=== PATIENT | female | born 1975 | race Caucasian/White ===

== ENCOUNTER 2018-04-10 15:45 | Inpatient (IN) ==
[2018-04-10] MEDS ORDERED: PANTOPRAZOLE 40 MG VIAL IV STA (16:25)
[2018-04-10] MEDS ORDERED: ONDANSETRON 4 MG/2 ML VIAL IV STA (16:25)
[2018-04-10] MEDS ORDERED: SODIUM CHLORIDE 0.9% 1,000 ML IV STA (16:25)
[2018-04-10 17:53] LABS: Basophils # 0.1 10*3/uL (0.0-0.2); Basophils % 0.2 % (0.0-0.8); Hemoglobin 14.8 GM/DL (12.0-16.0); Immature Granulocytes % 1.2 %; Immature Granulocytes Absolute 0.24 #; Lymphocytes # 2.1 10*3/uL (1.4-4.0); Lymphocytes % 10.2 % (21.3-54.2); Mean Corpuscular HGB Conc 30.8 GM/DL (32-36); Mean Corpuscular Hemoglobin 33 PG (27-34); Mean Corpuscular Volume 107.9 FL (87-102); Mean Platelet Volume 9.5 FL (9.6-12.0); Monocytes # 1.3 10*3/uL (0.11-0.8); Monocytes % 6.6 % (1.7-12.7); Neutrophils # 16.6 10*3/uL (1.4-7.4); Neutrophils % 81.8 % (38.7-73.9); Platelet Count 356 T/CUMM (130-400); Red Blood Count 4.45 MC/CUMM (3.8-5.5); White Blood Count 20.4 T/CUMM (4-12)
[2018-04-10 18:02] LABS: PT Patient Result 10.5 SECS
[2018-04-10 18:06] LABS: Apearance,Urine Slightly Hazy (Clear); Bilirubin,Urine Negative (Negative); Blood, Urine Negative (Negative); Glucose,Urine (UA) Negative (Negative); Hyaline Casts,Urine 18 /LPF (0-3); Ketones,Urine 5 mg/dL (Negative); Mucus,Urine Occasional /LPF (Occasional); Nitrite,Urine Negative (Negative); Protein,Urine 30 MG/DL; RBC,Urine 1 /HPF (0-4); Squamous Epithelial Cell,Urine Occasional /HPF (0-10); Urine Color Yellow (Yellow); Urine Specific Gravity 1.016 (1.001-1.035); Urine Urobilinogen < 2.0 EU/DL (0.2-1.0); WBC,Urine 1 /HPF (0-6)
[2018-04-10 18:15] LABS: Barbiturates Screen,Urine Positive (Negative); Benzodiazepines Screen,Urine Positive (Negative); Cannabinoid Screen,Urine Negative (Negative); Opiate Screen,Urine Negative (Negative); Phencyclidine Screen,Urine Negative (Negative)
[2018-04-10 18:23] LABS: Albumin 3.6 G/DL (3.4-5.0); Bilirubin,Total 0.7 MG/DL (0.2-1.0); Calcium 7.3 MG/DL (8.5-10.1); Osmolality,Calculated 274.5 MOS/KG (273-304); Potassium 5.2 MMOL/L (3.5-5.1); Total Protein 6.3 G/DL (6.4-8.3)
[2018-04-10 18:45] LABS: Lymphocytes 11 % (20-55); Segmented Neutrophils 85 % (50-85); Total Cells Counted 100
[2018-04-10 18:46] LABS: Macrocytosis 1+; Platelet Estimate Adequate
[2018-04-10] MEDS ORDERED: DIAZEPAM 10 MG/2 ML SYRINGE IV PRN (20:14)
[2018-04-10] MEDS ORDERED: LEVOFLOXACIN INJ 750 MG in PREMIX 1 EACH IV SCH (20:30)
[2018-04-10] MEDS: LORazepam 2 MG/1 ML VIAL IV PRN ×2 (20:45→23:38)
[2018-04-10] MEDS ORDERED: DEXTROSE 50% 25 GM/50 ML SYRINGE IV PRN (20:49)
[2018-04-10] MEDS ORDERED: GLUCAGON 1 MG VIAL IM PRN (20:49)
[2018-04-10 20:59] LABS: Hematocrit 45.5 VOL% (35.7-47.0); Hemoglobin 14.4 GM/DL (12.0-16.0)
[2018-04-10] MEDS: INSULIN LISPRO 100 UNIT/ML SUBCUT SCH (21:39)
[2018-04-10] MEDS: ONDANSETRON 4 MG/2 ML VIAL IV PRN (23:38)
[2018-04-10] MEDS: MIRTAZAPINE 15 MG TABLET PO SCH (23:38)
[2018-04-10] MEDS: SODIUM CHLORIDE 0.9% 1,000 ML IV SCH (23:39)
[2018-04-11] MEDS: THIAMINE 200 MG/2 ML VIAL IV SCH ×3 (00:17→08:03)
[2018-04-11] MEDS: FOLIC ACID 1 MG TABLET PO SCH ×2 (00:17→08:01)
[2018-04-11] MEDS: MULTIVITAMIN (CENTRUM) TABLET PO SCH ×2 (00:17→08:00)
[2018-04-11] MEDS: PANTOPRAZOLE INJ 200 MG in SODIUM CHLORIDE 0.9% 250 ML IV SCH (00:34)
[2018-04-11] MEDS ORDERED: PROMETHAZINE 25 MG/1 ML VIAL IM PRN (01:22)
[2018-04-11] MEDS: PROMETHAZINE 25 MG/1 ML VIAL IM PRN ×4 (01:33→20:15)
[2018-04-11 03:05] LABS: Basophils # 0.1 10*3/uL (0.0-0.2); Basophils % 0.3 % (0.0-0.8); Hematocrit 42.5 VOL% (35.7-47.0); Hemoglobin 13.3 GM/DL (12.0-16.0); Immature Granulocytes % 0.7 %; Immature Granulocytes Absolute 0.13 #; Lymphocytes % 5.4 % (21.3-54.2); Mean Corpuscular HGB Conc 31.3 GM/DL (32-36); Mean Corpuscular Hemoglobin 33 PG (27-34); Mean Corpuscular Volume 106.5 FL (87-102); Mean Platelet Volume 9.7 FL (9.6-12.0); Monocytes # 1.7 10*3/uL (0.11-0.8); Monocytes % 9.6 % (1.7-12.7); Neutrophils # 14.8 10*3/uL (1.4-7.4); Platelet Count 268 T/CUMM (130-400); Red Blood Count 3.99 MC/CUMM (3.8-5.5); Red Cell Distribution Width 12.8 % (9.3-17.3); White Blood Count 17.6 T/CUMM (4-12)
[2018-04-11] MEDS: ONDANSETRON 4 MG/2 ML VIAL IV PRN ×4 (05:14→23:36)
[2018-04-11] MEDS: SODIUM CHLORIDE 0.9% 1,000 ML IV SCH ×3 (05:16→21:16)
[2018-04-11] MEDS: LORazepam 2 MG/1 ML VIAL IV PRN ×4 (05:22→21:09)
[2018-04-11 07:23] LABS: PT Patient Result 10.9 SECS; Partial Thromboplastin Time 26.6 SECS (0-40)
[2018-04-11] MEDS: INSULIN LISPRO 100 UNIT/ML SUBCUT SCH ×4 (07:32→21:17)
[2018-04-11 08:03] LABS: Bilirubin,Total 0.4 MG/DL (0.2-1.0); Calcium 6.6 MG/DL (8.5-10.1); Osmolality,Calculated 267.4 MOS/KG (273-304); Potassium 4.5 MMOL/L (3.5-5.1); Total Protein 5.6 G/DL (6.4-8.3)
[2018-04-11 08:30] LABS: Hematocrit 37.7 VOL% (35.7-47.0); Hemoglobin 12.3 GM/DL (12.0-16.0)
[2018-04-11 15:17] LABS: Hemoglobin 12.1 GM/DL (12.0-16.0)
[2018-04-11] MEDS: MIRTAZAPINE 15 MG TABLET PO SCH (20:16)
[2018-04-12] MEDS: LORazepam 2 MG/1 ML VIAL IV PRN ×4 (01:15→20:10)
[2018-04-12] MEDS: PANTOPRAZOLE INJ 200 MG in SODIUM CHLORIDE 0.9% 250 ML IV SCH (01:21)
[2018-04-12] MEDS: PROMETHAZINE 25 MG/1 ML VIAL IM PRN ×3 (02:07→20:10)
[2018-04-12] MEDS: ONDANSETRON 4 MG/2 ML VIAL IV PRN ×3 (05:18→22:50)
[2018-04-12] MEDS: SODIUM CHLORIDE 0.9% 1,000 ML IV SCH ×2 (05:21→16:14)
[2018-04-12 06:00] LABS: Hematocrit 34.8 VOL% (35.7-47.0); Hemoglobin 11.5 GM/DL (12.0-16.0); Immature Granulocytes % 0.4 %; Immature Granulocytes Absolute 0.02 #; Lymphocytes # 0.9 10*3/uL (1.4-4.0); Lymphocytes % 17.7 % (21.3-54.2); Mean Corpuscular Hemoglobin 33 PG (27-34); Mean Corpuscular Volume 99.1 FL (87-102); Mean Platelet Volume 10.2 FL (9.6-12.0); Monocytes # 0.6 10*3/uL (0.11-0.8); Monocytes % 10.7 % (1.7-12.7); Neutrophils # 3.8 10*3/uL (1.4-7.4); Neutrophils % 71.2 % (38.7-73.9); Platelet Count 181 T/CUMM (130-400); Red Blood Count 3.51 MC/CUMM (3.8-5.5); Red Cell Distribution Width 12.9 % (9.3-17.3); White Blood Count 5.3 T/CUMM (4-12)
[2018-04-12 06:06] LABS: INR 0.9; PT Patient Result 10.3 SECS
[2018-04-12 06:48] LABS: Osmolality,Calculated 268.2 MOS/KG (273-304); Potassium 3.8 MMOL/L (3.5-5.1)
[2018-04-12] MEDS: INSULIN LISPRO 100 UNIT/ML SUBCUT SCH ×4 (07:39→21:04)
[2018-04-12] MEDS: THIAMINE 200 MG/2 ML VIAL IV SCH (09:31)
[2018-04-12] MEDS ORDERED: PROPOFOL 200 MG/20 ML VIAL IV ONE (10:00)
[2018-04-12] MEDS ORDERED: LIDOCAINE 2% 5 ML VIAL ONE (10:00)
[2018-04-12] MEDS: FOLIC ACID 1 MG TABLET PO SCH (12:16)
[2018-04-12] MEDS: MULTIVITAMIN (CENTRUM) TABLET PO SCH (12:16)
[2018-04-12] MEDS: LEVOFLOXACIN INJ 750 MG in PREMIX 1 EACH IV SCH (20:08)
[2018-04-12] MEDS: MIRTAZAPINE 15 MG TABLET PO SCH (20:10)
[2018-04-12] MEDS: PANTOPRAZOLE 40 MG VIAL IV SCH (20:12)
[2018-04-13] MEDS: LORazepam 2 MG/1 ML VIAL IV PRN ×5 (00:25→21:08)
[2018-04-13] MEDS: SODIUM CHLORIDE 0.9% 1,000 ML IV SCH ×3 (00:27→17:08)
[2018-04-13] MEDS: ONDANSETRON 4 MG/2 ML VIAL IV PRN ×2 (04:39→21:08)
[2018-04-13] MEDS: PROMETHAZINE 25 MG/1 ML VIAL IM PRN ×3 (06:05→21:17)
[2018-04-13 06:12] LABS: Basophils % 0.2 % (0.0-0.8); Eosinophils % 0.9 % (0.00-10.9); Hematocrit 36.1 VOL% (35.7-47.0); Hemoglobin 12.3 GM/DL (12.0-16.0); Immature Granulocytes % 0.2 %; Immature Granulocytes Absolute 0.01 #; Lymphocytes # 1.6 10*3/uL (1.4-4.0); Lymphocytes % 37.2 % (21.3-54.2); Mean Corpuscular HGB Conc 34.1 GM/DL (32-36); Mean Corpuscular Hemoglobin 33 PG (27-34); Mean Corpuscular Volume 97.6 FL (87-102); Mean Platelet Volume 9.7 FL (9.6-12.0); Monocytes # 0.6 10*3/uL (0.11-0.8); Monocytes % 14.1 % (1.7-12.7); Neutrophils % 47.4 % (38.7-73.9); Platelet Count 151 T/CUMM (130-400); Red Cell Distribution Width 12.9 % (9.3-17.3); White Blood Count 4.3 T/CUMM (4-12)
[2018-04-13 06:20] LABS: PT Patient Result 10.5 SECS
[2018-04-13 06:38] LABS: Albumin 2.7 G/DL (3.4-5.0); Bilirubin,Total 0.5 MG/DL (0.2-1.0); Calcium 7.8 MG/DL (8.5-10.1); Osmolality,Calculated 272.7 MOS/KG (273-304); Total Protein 5.4 G/DL (6.4-8.3)
[2018-04-13] MEDS: INSULIN LISPRO 100 UNIT/ML SUBCUT SCH ×4 (08:21→23:06)
[2018-04-13] MEDS: MULTIVITAMIN (CENTRUM) TABLET PO SCH (09:27)
[2018-04-13] MEDS: SODIUM CHLOR 0.9% KCL 40 MEQ 40 MEQ/1,000 ML BAG IV SCH (09:37)
[2018-04-13] MEDS: THIAMINE 200 MG/2 ML VIAL IV SCH (09:40)
[2018-04-13] MEDS: FOLIC ACID 1 MG TABLET PO SCH (09:40)
[2018-04-13 10:33] LABS: Apearance,Urine CLEAR (Clear); Bacteria,Urine Occasional /HPF (Few); Bilirubin,Urine Negative (Negative); Blood, Urine Moderate mg/dL (Negative); Glucose,Urine (UA) Negative (Negative); Ketones,Urine 20 mg/dL (Negative); Mucus,Urine Occasional /LPF (Occasional); Nitrite,Urine Negative (Negative); Protein,Urine Negative; RBC,Urine 6 /HPF (0-4); Urine Color Straw (Yellow); Urine Specific Gravity 1.005 (1.001-1.035); Urine Urobilinogen < 2.0 EU/DL (0.2-1.0); WBC,Urine 2 /HPF (0-6)
[2018-04-13 10:39] LABS: Barbiturates Screen,Urine Positive (Negative); Benzodiazepines Screen,Urine Negative (Negative); Cannabinoid Screen,Urine Negative (Negative); Opiate Screen,Urine Positive (Negative); Phencyclidine Screen,Urine Negative (Negative)
[2018-04-13] MEDS: PANTOPRAZOLE 40 MG VIAL IV SCH ×2 (11:52→21:07)
[2018-04-13] MEDS: MIRTAZAPINE 15 MG TABLET PO SCH (21:09)
[2018-04-13] MEDS: LEVOFLOXACIN INJ 750 MG in PREMIX 1 EACH IV SCH (21:09)
[2018-04-14] MEDS: LORazepam 2 MG/1 ML VIAL IV PRN ×2 (00:50→04:39)
[2018-04-14] MEDS: PROMETHAZINE 25 MG/1 ML VIAL IM PRN ×3 (04:39→18:12)
[2018-04-14] MEDS: ONDANSETRON 4 MG/2 ML VIAL IV PRN (04:40)
[2018-04-14 06:06] LABS: Basophils % 0.2 % (0.0-0.8); Eosinophils # 0.1 10*3/uL (0.0-0.87); Eosinophils % 2.1 % (0.00-10.9); Hematocrit 38.1 VOL% (35.7-47.0); Hemoglobin 12.9 GM/DL (12.0-16.0); Immature Granulocytes % 0.5 %; Immature Granulocytes Absolute 0.02 #; Lymphocytes # 1.7 10*3/uL (1.4-4.0); Lymphocytes % 39.6 % (21.3-54.2); Mean Corpuscular HGB Conc 33.9 GM/DL (32-36); Mean Corpuscular Hemoglobin 33 PG (27-34); Mean Corpuscular Volume 97.4 FL (87-102); Mean Platelet Volume 10.5 FL (9.6-12.0); Monocytes # 0.6 10*3/uL (0.11-0.8); Monocytes % 12.8 % (1.7-12.7); Neutrophils % 44.8 % (38.7-73.9); Platelet Count 165 T/CUMM (130-400); Red Blood Count 3.91 MC/CUMM (3.8-5.5); White Blood Count 4.4 T/CUMM (4-12)
[2018-04-14 06:19] LABS: Calcium 7.8 MG/DL (8.5-10.1); Osmolality,Calculated 279.4 MOS/KG (273-304); Potassium 3.3 MMOL/L (3.5-5.1)
[2018-04-14 06:24] LABS: Albumin 2.4 G/DL (3.4-5.0); Bilirubin,Direct 0.12 MG/DL (0.0-0.20); Bilirubin,Indirect 0.5 MG/DL (0.0-1.0); Bilirubin,Total 0.6 MG/DL (0.2-1.0); Total Protein 5.1 G/DL (6.4-8.3)
[2018-04-14] MEDS: SODIUM CHLOR 0.9% KCL 40 MEQ 40 MEQ/1,000 ML BAG IV SCH (07:35)
[2018-04-14] MEDS: MULTIVITAMIN (CENTRUM) TABLET PO SCH (09:01)
[2018-04-14] MEDS: LEVOFLOXACIN 750 MG TABLET PO SCH (09:01)
[2018-04-14] MEDS: PANTOPRAZOLE 40 MG TABLET PO SCH ×2 (09:01→20:36)
[2018-04-14] MEDS: GABAPENTIN 300 MG CAPSULE PO SCH ×2 (09:01→16:03)
[2018-04-14] MEDS: POTASSIUM CHLORIDE 20 MEQ TABLET PO SCH ×4 (09:01→20:36)
[2018-04-14] MEDS: FOLIC ACID 1 MG TABLET PO SCH (09:01)
[2018-04-14] MEDS: INSULIN LISPRO 100 UNIT/ML SUBCUT SCH ×4 (09:01→20:36)
[2018-04-14] MEDS: LORazepam 1 MG TABLET PO PRN ×4 (09:01→23:03)
[2018-04-14] MEDS: SODIUM CHLORIDE 0.9% 1,000 ML IV SCH (09:09)
[2018-04-14] MEDS: POLYETHYLENE GLYCOL POWDER 17 GM PACK PO SCH (10:15)
[2018-04-14] MEDS: INSULIN NPH 100 UNIT/ML SUBCUT SCH (16:03)
[2018-04-14] MEDS: MIRTAZAPINE 15 MG TABLET PO SCH (20:36)
[2018-04-14] MEDS: QUEtiapine 25 MG TABLET PO SCH (20:36)
[2018-04-15] MEDS: GABAPENTIN 300 MG CAPSULE PO SCH ×3 (00:26→15:25)
[2018-04-15] MEDS: PROMETHAZINE 25 MG/1 ML VIAL IM PRN ×3 (00:26→22:40)
[2018-04-15] MEDS: LORazepam 1 MG TABLET PO PRN ×4 (06:41→20:51)
[2018-04-15] MEDS: LEVOTHYROXINE 125 MCG TABLET PO SCH (06:41)
[2018-04-15 07:27] LABS: Calcium 8.1 MG/DL (8.5-10.1); Osmolality,Calculated 276.5 MOS/KG (273-304); Potassium 4.9 MMOL/L (3.5-5.1)
[2018-04-15 08:06] LABS: Hematocrit 38.1 VOL% (35.7-47.0)
[2018-04-15] MEDS: PANTOPRAZOLE 40 MG TABLET PO SCH ×2 (08:29→20:51)
[2018-04-15] MEDS: MULTIVITAMIN (CENTRUM) TABLET PO SCH (08:29)
[2018-04-15] MEDS: LEVOFLOXACIN 750 MG TABLET PO SCH (08:29)
[2018-04-15] MEDS: FOLIC ACID 1 MG TABLET PO SCH (08:29)
[2018-04-15] MEDS: POLYETHYLENE GLYCOL POWDER 17 GM PACK PO SCH (08:29)
[2018-04-15] MEDS: INSULIN LISPRO 100 UNIT/ML SUBCUT SCH ×4 (08:30→22:41)
[2018-04-15] MEDS: INSULIN NPH 100 UNIT/ML SUBCUT SCH ×2 (08:30→16:18)
[2018-04-15] MEDS: IBUPROFEN 200 MG TABLET PO PRN (15:25)
[2018-04-15] MEDS: QUEtiapine 25 MG TABLET PO SCH (20:51)
[2018-04-15] MEDS: MIRTAZAPINE 15 MG TABLET PO SCH (20:51)
[2018-04-16] MEDS: GABAPENTIN 300 MG CAPSULE PO SCH ×5 (00:55→23:06)
[2018-04-16] MEDS: LORazepam 1 MG TABLET PO PRN ×5 (00:55→20:19)
[2018-04-16] MEDS: LEVOTHYROXINE 125 MCG TABLET PO SCH (06:18)
[2018-04-16 06:38] LABS: Basophils % 0.4 % (0.0-0.8); Eosinophils # 0.2 10*3/uL (0.0-0.87); Eosinophils % 2.7 % (0.00-10.9); Hematocrit 36.3 VOL% (35.7-47.0); Immature Granulocytes % 1.3 %; Immature Granulocytes Absolute 0.07 #; Lymphocytes # 2.5 10*3/uL (1.4-4.0); Lymphocytes % 45.7 % (21.3-54.2); Mean Corpuscular HGB Conc 33.1 GM/DL (32-36); Mean Corpuscular Hemoglobin 33 PG (27-34); Mean Corpuscular Volume 101.1 FL (87-102); Monocytes # 0.6 10*3/uL (0.11-0.8); Monocytes % 11.1 % (1.7-12.7); Neutrophils # 2.1 10*3/uL (1.4-7.4); Neutrophils % 38.8 % (38.7-73.9); Platelet Count 177 T/CUMM (130-400); Red Blood Count 3.59 MC/CUMM (3.8-5.5); Red Cell Distribution Width 13.1 % (9.3-17.3); White Blood Count 5.5 T/CUMM (4-12)
[2018-04-16 07:05] LABS: Calcium 7.7 MG/DL (8.5-10.1); Osmolality,Calculated 278.7 MOS/KG (273-304); Potassium 4.2 MMOL/L (3.5-5.1)
[2018-04-16] MEDS: LEVOFLOXACIN 750 MG TABLET PO SCH ×2 (07:54→10:45)
[2018-04-16] MEDS: MULTIVITAMIN (CENTRUM) TABLET PO SCH ×2 (07:54→10:45)
[2018-04-16] MEDS: PANTOPRAZOLE 40 MG TABLET PO SCH ×3 (07:55→20:19)
[2018-04-16] MEDS: INSULIN NPH 100 UNIT/ML SUBCUT SCH ×2 (07:55→17:17)
[2018-04-16] MEDS: FOLIC ACID 1 MG TABLET PO SCH ×2 (07:55→10:45)
[2018-04-16] MEDS: INSULIN LISPRO 100 UNIT/ML SUBCUT SCH ×4 (07:55→20:19)
[2018-04-16] MEDS: POLYETHYLENE GLYCOL POWDER 17 GM PACK PO SCH (10:45)
[2018-04-16] MEDS: ONDANSETRON 4 MG TABLET PO PRN ×2 (12:52→22:32)
[2018-04-16] MEDS: MIRTAZAPINE 15 MG TABLET PO SCH (22:06)
[2018-04-16] MEDS: QUEtiapine 25 MG TABLET PO SCH (22:06)
[2018-04-16] MEDS: IBUPROFEN 200 MG TABLET PO PRN (22:31)
[2018-04-17] MEDS: LORazepam 1 MG TABLET PO PRN ×2 (03:19→08:10)
[2018-04-17] MEDS: LEVOTHYROXINE 125 MCG TABLET PO SCH (06:03)
[2018-04-17 06:09] LABS: Calcium 7.9 MG/DL (8.5-10.1); Osmolality,Calculated 276.7 MOS/KG (273-304); Potassium 4.9 MMOL/L (3.5-5.1)
[2018-04-17] MEDS: INSULIN LISPRO 100 UNIT/ML SUBCUT SCH (07:47)
[2018-04-17] MEDS: GABAPENTIN 300 MG CAPSULE PO SCH (08:09)
[2018-04-17] MEDS: INSULIN NPH 100 UNIT/ML SUBCUT SCH (08:09)
[2018-04-17] MEDS: MULTIVITAMIN (CENTRUM) TABLET PO SCH (08:09)
[2018-04-17] MEDS: PANTOPRAZOLE 40 MG TABLET PO SCH (08:09)
[2018-04-17] MEDS: LEVOFLOXACIN 750 MG TABLET PO SCH (08:09)
[2018-04-17] MEDS: FOLIC ACID 1 MG TABLET PO SCH (08:09)
[2018-04-17] MEDS: POLYETHYLENE GLYCOL POWDER 17 GM PACK PO SCH (08:13)
[2018-04-17 09:25] VITALS: BP 91/58
== END 2018-04-17 11:05 | disposition home or self-care (01) | DRG 378 ==
LOC: EDUNIT# → N.ED 15:45 → N.EDINP 21:37 → SUATTDRO 21:37 → N.5E 22:14
PROVIDERS: ADMIT Internal Medicine; ATTEND Hospitalist